=== PATIENT | female | born 1940 | race Caucasian/White ===

== ENCOUNTER 2018-10-06 11:23 | Outpatient (CLI) | payer MEDICARE ==
--- NOTE | 2018-10-06 19:38 | CONSULTATION NOTE ---
Palliative Care Consultation - Referral Referring Provider: Dr. Kerri Mckeon Time of Visit: [id number] Referral setting: [facility] [place] Referral Reason: Met Colon Cancer with liver mets/goals of care - Information Sources Records reviewed: Previous records reviewed History/Review of Systems obtained from: Patient, Family ( Ed present for visit) Exam limitations: No limitations - History of Present Illness Brief History of Present Illness: This is a sue 78-year-old woman with metastatic colon cancer with liver mets, had recurrent disease in March 2017. She had been received chemotherapy,, she was originally on FOLFOX and Avastin, had to discontinue oxaliplatin with cycle 5 because of neuropathy. She was restarted on FOLFIRI on 03/02 2018, because of increasing tumor marker indicating progression. She had received her original treatment over in [place], she has transitioned to the [facility] [place] clinic. She did have an incidental pulmonary embolus finding on a restaging CT of the chest, she is currently on Lovenox. She does feel significant fatigue, some increase in her peripheral neuropathy, and is feeling quite tearful and somewhat overwhelmed during the time she gets her chemotherapy. She does report though she feels better on her week off. She does have a port, and she has her continuous infusion of 5-FU you going at a time of our visit. Her original diagnosis was actually in 08/2012, when she presented with a prolapsed rectum, enlarged uterus 11 x 10 cm mass, and at that point in time had BETSY with SBO, and Resection of her liver sigmoid/upper rectum with found tumor of invasive adenocarcinoma. She was diagnosed with stage I colon cancer, with negative nodes at that point in time. Unfortunately she had a complicated postop course, with Admission for small bowel obstruction, received at that point time exploratory lap, and lysis of adhesion, and gastrostomy tube for decompression. She is meeting with palliative care, define goals of care, wanting to balance benefits and burdens of treatment versus no treatment, and discuss the continuum of care. Patient presents with moderate symptom burden of pain, fatigue, and depression. Medical/Surgical History - Past Medical History Cardiovascular: reports: Pulmonary embolism Respiratory: reports: None Neuro: reports: Peripheral neuropathy Endocrine/Autoimmune: reports: None GI: reports: Colon polyps, Chronic diarrhea, Other (colon cancer; hx of adhesions/obstructions) FURNACE COMBUSTION TESTER: reports: Fibroids : reports: None HEENT: reports: None Psych: reports: Anxiety Musculoskeletal: reports: Osteoarthritis Derm: reports: None MRSA Hx?: No - Past Surgical History General: reports: Bowel surgery, Other (portacath) Ortho: reports: Other (fused ankle) /FURNACE COMBUSTION TESTER: reports: Hysterectomy, Oophrectomy HEENT: reports: Other (thyroid surgery) - Substance History Use: Uses substance without health or social issues: Alcohol Social History - Living Situation Living arrangement: At home Living Situation: With spouse/s.o. Support System: Patient has been for 35 years, and her Ed. 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 They have 1 son [id number] She has many friends and has been active in the [employer] for many years, she continues to stay connected. Family History - Family History Family History: Mother: (father of lung cancer age 60; mother palsey 78; sister 68 of cancer), Father: , Sister: Medications/Allergies - Medications Home Medications: Ambulatory Orders Medication Instructions Recorded Confirmed Multivitamin [Multiple Vitamins] 1 each PO DAILY 11/17/12 10/07/18 Cholecalciferol (Vitamin D3) 1,000 unit PO DAILY 02/07/13 10/07/18 [Vitamin D3] Lactobacillus Rhamnosus GG 1 each PO TID 02/07/13 10/07/18 [Probiotic] Enoxaparin [Lovenox] 80 mg SUBQ DAILY 10/07/18 10/07/18 Ondansetron [Ondansetron Odt] 8 mg PO Q8HR PRN 10/07/18 10/07/18 Pantoprazole [Protonix] 40 mg PO DAILY 10/07/18 10/07/18 Polyethylene Glycol 3350 [Miralax] 17 gm PO DAILY PRN 10/07/18 10/07/18 oxyCODONE [Roxicodone] 5 mg PO Q3HR PRN 10/07/18 10/07/18 - Allergies Allergies/Adverse Reactions: Allergies Allergy/AdvReac Type Severity Reaction Status Date / Time No Known Drug Allergies Allergy Verified 10/04/18 11:49 Review of Systems - Constitutional Constitutional: reports: Fatigue, Night sweats, Weight loss (105; baseline previously was 120) - Eyes Eyes: reports: Vision loss, Corrective lenses - Ears, Nose & Throat Ears, Nose & Throat: reports: Mouth lesions, Dry mouth - Cardiovascular Cardiovascular: reports: Lightheadedness (during chemo), Decr. exercise toleranc e (still baseline able to bike/take walks) - Respiratory Respiratory: reports: SOB with exertion. denies: Orthopnea, SOB at rest - Gastrointestinal Gastrointestinal: reports: Constipation (alternates with diarrhea), Diarrhea, Nausea, Poor appetite, Early satiety, Other (taste changes) - Integumentary Integumentary: reports: Dryness - Neurological Neurological: reports: Numbness (peripheral neuropathy; ;mostly in hands) - Psychiatric Psychiatric: reports: Anxiety - Hematologic/Lymphatic Hematologic/Lymphatic: reports: Blood clots (on lovenox for PE found on CT). denies: Recurrent infections - All Other Systems All Other Systems: reports: Reviewed and negative Physical Exam - Vital Signs Pulse Rate: 66 Respiratory Rate: 18 Blood Pressure: 131/66 - Physical Exam General Appearance: positive: No acute distress Eyes Bilateral: positive: Normal inspection, No scleral icterus ENT: positive: Pharyngeal erythema Neck: positive: No JVD, Trachea midline Cardiovascular: positive: Regular rate & rhythm Respiratory: positive: No respiratory distress, Diminished in bases. negative: Wheezes, Rales, Rhonchi Abdomen: positive: Soft Skin: positive: Dryness Extremities: positive: No pedal edema Neurologic/Psychiatric: positive: Oriented x3, Other (tearfulness) Palliative Care - POLST Patient has POLST: No POLST Status: DNR Pain: Pain unchanged, Location (With diffuse abdominal pain, and right upper quadrant tenderness. She does and has been using oxycodone 5 mg intermittent through the day up to 4 to 5 tablets. She does feel this is adequate and this has control it to her satisfaction. Is fairly persistent, unable to identify exacerbating or relieving factors, other than the pain meds do address the discomfort.), Severity (4-5/10) Tiredness/Fatigue: Moderate (4-6) Drowsiness/Sedation: Mild (1-3) Nausea: Mild (1-3) Depression: Mild (1-3) Anxiety: Mild (1-3) Dyspnea: Moderate (4-6), Comment (with activity not at rest) Anorexia: Moderate (4-6) Sleep: Variable sleep pattern Constipation: Yes, Opoid induced, Intermittent constipation Feelings of wellbeing/Perceived Quality of Life: Good, Acceptable, Worsening Performance Status: Patient remains quite active, gardening, walking, still biking. Will attend her own ADLs. She is very concerned about the future and functional decline. She is fiercely independent. She has had to pace and modify her activities, and take more frequent rests. She does experience fluctuating with her energy with her chemotherapy schedule. - Palliative Care Discussion: Patient does understand she has terminal illness. She is continuing to choose chemotherapy, with the understanding that it could extend her life for 2 to 3 years. She is mostly concerned about quality of life, continue to weigh decisions based on benefits and burdens. She does feel overwhelmed at times, particularly during chemo weeks, with the addition of "chemicals". She and her are concerned regarding planning for her decline in the future, both understand there is limited treatment at the point she progresses on her current regimen. Patient admits to being fiercely independent, and the thought of decline, and needing support for end-of-life care, is difficult. 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 She is also interested in [facility] for end-of-life care as well. Her overall goal though would be to have a at home surrounded by her friends and family. She does have her medical D POA, requested copy for her records. We also discussed the role of the POLST, she thinks she may have one filled out, reviewed is not helpful to have on "file somewhere" that it needs to be a traveling document for herself. Given copy and agreed to follow-up at next visit. Results - Lab Results Lab results reviewed: Yes Lab and Imaging Results: Slightly anemic at 11.9; hematocrit 35.8; total protein 6.0; albumin 3.2; CEA 1331 Impression and Recommendations - Palliative Care Impression: This is a sue 78-year-old woman with metastatic sigmoid colon cancer with liver mets. She is currently receiving FOLFIRI, and is receiving Lovenox secondary to PE found on CT staging scan. This was as of June/2017. She also has known bilateral pulmonary metastasis, and mediastinal lymph nodes, and suspicious findings for bone mets. She presents with moderate symptom burden, fatigue, anorexia, weight loss, and diffuse abdominal pain. Palliative care to provide support regarding anticipatory guidance, symptom management, and transition of care planning when appropriate. Recommendations/Counseling Done: 1. Pain of neoplastic origin. Patient currently taking oxycodone 5 mg 4-5 times a day. Counseling provided regarding option of long-acting medication, OxyContin for time-released, or fentanyl patch. At this point in time she is satisfied with her current regimen, but did discuss given her concerns for future progression of disease/and/or suffering reassured there were multiple options and approaches to keep her pain controlled. 2. Depression. Patient is quite tearful, with anticipatory grief and loss. Reports she has tried something for anxiety, with side effects, does not recall what. Will readdress in future visits. Patient is with good social support, feels she is sharing with friends, has been very supportive, and seeks out ways to normalize and distract herself. She reports she is not a group person, but did give her [employer] information for cancer retreats. 3. Anorexia. This is multifactorial in origin, including taste changes, side effects of chemotherapy, and disease. Patient is using CBD at bedtime both for sleep and appetite stimulant. She feels she is maintaining her weight currently, and feels has adequate strategies at this point in time. Can look for support in the future from dietitian if would be helpful. 4. Advanced care planning. Patient has been with multiple questions regarding planning into the future, counseling provided regarding the continuum of care, palliative care versus hospice care, hospice benefit and support at end of life. Patient also interested in DWD option to explore, patient's understanding currently is her prognosis is greater than 6 months, will follow up with oncologist regarding timing. Counseling provided regarding advanced care planning, role of POLST, and need to obtain documents for medical record. Visit set for 2 weeks and follow-up. Time Spent: 60 minutes was given 50% of this done in counseling regarding advanced care planning, goals of care, pain and symptom management role of palliative care as well as setting of rapport
== END 2018-10-06 11:24 | disposition home or self-care (01) ==
LOC: PC 11:23
PROVIDERS: ATTEND Nurse Practitioner Adult Health
DX: Z51.5 Encounter for palliative care (principal); G89.3 Neoplasm related pain (acute) (chronic); R10.84 Generalized abdominal pain; F32.9 Major depressive disorder, single episode, unspecified; R63.0 Anorexia; C18.9 Malignant neoplasm of colon, unspecified; C78.7 Secondary malignant neoplasm of liver and intrahepatic bile duct; C78.02 Secondary malignant neoplasm of left lung; C78.01 Secondary malignant neoplasm of right lung; C77.9 Secondary and unspecified malignant neoplasm of lymph node, unspecified; Z86.711 Personal history of pulmonary embolism; Z79.01 Long term (current) use of anticoagulants; Z79.899 Other long term (current) drug therapy; Z66 Do not resuscitate
CPT/HCPCS: 99205

== ENCOUNTER 2018-10-20 12:30 | Outpatient (CLI) | payer MEDICARE ==
--- NOTE | 2018-10-20 16:52 | CONSULTATION NOTE ---
Palliative Care Follow Up - Referral Referring Provider: Dr. Kerri Mckeon Time of Visit: [id number] Referral setting: [facility] [place] Referral Reason: Met Colon Cancer with mets liver/pain of neoplastic origin - Information Sources Records reviewed: Previous records reviewed History/Review of Systems obtained from: Patient, Family ( Ed at visit) Exam limitations: No limitations - History of Present Illness Update Brief HPI Update: This is a sue 78-year-old woman with metastatic colon cancer to liver mets, who had recurrent disease in March 2017. She has been on continuous chemotherapy, and currently on FOLFOX since 08/2018. She had her treatment held this week, secondary to low platelet count of 71,000, her tumor marker has been increasing as well to 1448. She is having increased abdominal pain, that she is attributing to most likely progressive disease. She is also having increased fatigue, and presents today to talk about goals of care, and pain and symptom management. Her pain severity is about a 6 out of 10, is consistently persistent. Is located mostly right upper quadrant. She has been using oxycodone 5 mg throughout the day, has been awakening at night to take an extra dose. Patient does appear most likely undermedicated, given her pain tolerance and progressive tumor burden. Has new exacerbation of right sciatica pain, located in the hip radiating down her leg. 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 Social History - Living Situation Living arrangement: At home Living Situation: With spouse/s.o. Support System: Lives with her and, and [place] He originally was going to join us, but given we were going to further explore advanced directives decided this was not the time. She has a very large supportive community of friends, and finds being limited with her fatigue and energy quite frustrating, keeping her from the things she loves. Medications/Allergies - Medications Home Medications: Ambulatory Orders Medication Instructions Recorded Confirmed Multivitamin [Multiple Vitamins] 1 each PO DAILY 11/17/12 10/20/18 Cholecalciferol (Vitamin D3) 1,000 unit PO DAILY 02/07/13 10/20/18 [Vitamin D3] Lactobacillus Rhamnosus GG 1 each PO TID 02/07/13 10/20/18 [Probiotic] Enoxaparin [Lovenox] 80 mg SUBQ DAILY 10/07/18 10/20/18 Ondansetron [Ondansetron Odt] 8 mg PO Q8HR PRN 10/07/18 10/20/18 Pantoprazole [Protonix] 40 mg PO DAILY 10/07/18 10/20/18 Polyethylene Glycol 3350 [Miralax] 17 gm PO DAILY PRN 10/07/18 10/20/18 oxyCODONE [Roxicodone] 5 mg PO Q3HR PRN 10/07/18 10/20/18 fentaNYL [Fentanyl 12mcg patch] 12 mcg TOP .Q72 HOURS 10/20/18 10/20/18 - Allergies Allergies/Adverse Reactions: Allergies Allergy/AdvReac Type Severity Reaction Status Date / Time No Known Drug Allergies Allergy Verified 10/18/18 08:54 Review of Systems - Constitutional Constitutional: reports: Fatigue, Poor appetite, Weight stable. denies: Fever - Cardiovascular Cardiovascular: reports: Decr. exercise tolerance - Respiratory Respiratory: reports: SOB with exertion. denies: SOB at rest - Gastrointestinal Gastrointestinal: reports: Abdominal pain, Constipation, Diarrhea (alternating), Rectal bleeding (with hard stool; none recently), Bloating, Poor appetite, Early satiety, Other (taste changes) - Musculoskeletal Musculoskeletal: reports: Stiffness, Muscle weakness - Integumentary Integumentary: reports: Dryness - Psychiatric Psychiatric: reports: Anxiety. denies: Depression - Hematologic/Lymphatic Hematologic/Lymphatic: reports: Anemia, Blood clots. denies: Recurrent inf ections - All Other Systems All Other Systems: reports: Reviewed and negative Physical Exam - Vital Signs Pulse Rate: 76 Respiratory Rate: 18 O2 Saturation: 98 (ra @ rest) Blood Pressure: 122/74 - Physical Exam General Appearance: positive: No acute distress, Anxious Eyes Bilateral: positive: Normal inspection, No scleral icterus ENT: negative: Pharyngeal erythema, Oral lesions Neck: positive: No JVD, Trachea midline Cardiovascular: positive: Regular rate & rhythm Respiratory: positive: No respiratory distress Abdomen: positive: Soft, Tenderness Skin: positive: Pallor, Dryness Extremities: positive: No pedal edema Neurologic/Psychiatric: positive: Oriented x3, Weakness, Other (tearful; denies depression) Palliative Care - POLST Patient has POLST: Yes POLST Status: DNR, Selective Treatment (completed POLST at visit) Pain: Pain worsening, Location (see HPI) Tiredness/Fatigue: Moderate (4-6) Drowsiness/Sedation: Moderate (4-6) Nausea: Mild (1-3) Depression: Mild (1-3) Anxiety: Mild (1-3) Dyspnea: Mild (1-3) Anorexia: Moderate (4-6) Sleep: Variable sleep pattern Constipation: Yes, Intermittent constipation Feelings of wellbeing/Perceived Quality of Life: Fair, Worsening Performance Status: Patient's activity currently limited by fatigue, some with right sciatica pain. Patient is able to attend to her own ADLs, but finding things about her condit ion limiting. I would put her at a PPS of 70% - Palliative Care Discussion: Discussion regarding goals of care, patient at end of life would like to be at home with hospice support. Still has multiple questions regarding some of the nuances and support services around that, questions answered. We did spend quite a bit of time on the POLST, the role of the pulse to communicate to the healthcare system particularly EMS or ED. Did elis DNA R/allow natural . She has a place where selective treatment with the goal of treating for several conditions, but does not want anything aggressive. Discussion regarding antibiotics, will determine the use with comfort is goal if issues arise, and currently no medically assisted nutrition. 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 Counseling provided regarding normalizing grief and loss process, patient does not perceive herself as depressed though is quite tearful and reflective of her decline in the future, and implications related to this. Results - Lab Results Lab results reviewed: Yes Lab and Imaging Results: Platelets 71,000, WBC 5.2, hemoglobin 11.9, neutrophil count 3.0. Tumor marker CEA went up to 1448. Impression and Recommendations - Palliative Care Impression: Is a sue 78-year-old woman with metastatic sigmoid colon cancer with liver, lung, and mediastinal lymph nodes and bone mets. She does present with escalating pain, fatigue, anorexia and weight loss. Palliative care providing support regarding anticipatory guidance, symptom management, and transition of care planning when appropriate. Recommendations/Counseling Done: 1. Pain off neoplastic origin. Patient does have escalating abdominal / RUQ pain, suspect she is under medicated. Discussed benefits and burdens of moving forward on long-acting pain medication, Dr. Mckeon is in agreement with this. We will go ahead and start her on fentanyl 12 mcg patch, counseling provided regarding safety, initiation, and changing of patch. She is to continue use oxycodone for breakthrough pain management, and will initiate on obtaining fentanyl patch. Patient would most likely also benefit from addition of either Lyrica or gabapentin for right sciatica pain, given patient on very few medications, will initiate after see how she tolerates fentanyl or if this improves sciatica pain. If this does not respond, will add next week. 2. Depression. Patient is quite tearful with anticipatory grief and loss. Does not perceive herself as depressed, has been reports she does not lack of motivation, but is feeling overwhelmed at times. She has had medication in the past for anxiety, this was not helpful but poor side effects for her. Is using CBD/THC for insomnia and appetite stimulant. 3. Advanced care planning. Family counseling regarding POLST and goals of care, patient currently DNA R with selective treatment. Her goals are to focus on quality of life, spending time with friends and family and the end of life she would like to have a at home. Counseling provided regarding the hospice benefit, palliative care versus hospice care, and transition recommended earlier than later if patient to discontinue treatment. Continues to weigh the benefits of burdens in the context of her quality of life, palliative care to continue provide support particular around pain and symptom management Time Spent: 60 minutes with greater than 50% of this done in counseling regarding POLST/goals of care, pain and symptom management initiating fentanyl patch instructed on safety, application, and use. Counseling provided regarding the long and short acting principles of pain management, and anticipatory guidance provided.
== END 2018-10-20 12:31 | disposition home or self-care (01) ==
LOC: PC 12:30
PROVIDERS: ATTEND Nurse Practitioner Adult Health
DX: Z51.5 Encounter for palliative care (principal); G89.3 Neoplasm related pain (acute) (chronic); C18.9 Malignant neoplasm of colon, unspecified; C78.7 Secondary malignant neoplasm of liver and intrahepatic bile duct; C78.00 Secondary malignant neoplasm of unspecified lung; C77.1 Secondary and unspecified malignant neoplasm of intrathoracic lymph nodes; C79.51 Secondary malignant neoplasm of bone; R97.0 Elevated carcinoembryonic antigen [CEA]; M54.31 Sciatica, right side; F32.9 Major depressive disorder, single episode, unspecified; F41.9 Anxiety disorder, unspecified; G47.00 Insomnia, unspecified; Z79.899 Other long term (current) drug therapy; Z66 Do not resuscitate; Z79.891 Long term (current) use of opiate analgesic
CPT/HCPCS: 99215

== ENCOUNTER 2018-11-08 12:19 | Outpatient (CLI) | payer MEDICARE ==
--- NOTE | 2018-11-08 17:44 | CONSULTATION NOTE ---
Palliative Care Follow Up - Referral Referring Provider: Dr. Kerri Mckeon Time of Visit: [id number] Referral setting: [facility] [place] Referral Reason: Sciatica right hip/Pain of neoplastic origin/Met Colon Cancer - Information Sources Records reviewed: Previous records reviewed History/Review of Systems obtained from: Patient Exam limitations: No limitations - History of Present Illness Update Brief HPI Update: This is a sue 78-year-old woman with metastatic colon cancer with liver mets, who had recurrent disease in March 2017. She has been on continuous chemotherapy, currently on FOLFOX since 08/2018. She has been feeling pretty good this last week, though her most persistent and aggravating symptom is her right sciatica. We have been titrating up gabapentin, without significant improvement. She has done some activities to exacerbate it, and is aware of those limitations. Her abdominal pain right upper quadrant, has improved on the fentanyl 12 mcg patch, she is only needed oxycodone at bedtime. She reports the most effective medicine at this point in time is been the Advil for her sciatica pain but very short lived. She has gained some weight, her appetite is been better, she does have decreased activity tolerance. She is somewhat anxious with her escalating CEA, and is appropriately pondering though "what next." Social History - Living Situation Living arrangement: At home Living Situation: With spouse/s.o. Support System: Home with her sue , who oversees her medications. She is here with a friend, she does feel like she has a supportive community. [place] in [place] contact also. Medications/Allergies - Medications Home Medications: Ambulatory Orders Medication Instructions Recorded Confirmed Multivitamin [Multiple Vitamins] 1 each PO DAILY 11/17/12 11/08/18 Cholecalciferol (Vitamin D3) 1,000 unit PO DAILY 02/07/13 11/08/18 [Vitamin D3] Lactobacillus Rhamnosus GG 1 each PO TID 02/07/13 11/08/18 [Probiotic] Enoxaparin [Lovenox] 80 mg SUBQ DAILY 10/07/18 11/08/18 Ondansetron [Ondansetron Odt] 8 mg PO Q8HR PRN 10/07/18 11/08/18 Pantoprazole [Protonix] 40 mg PO DAILY 10/07/18 11/08/18 Polyethylene Glycol 3350 [Miralax] 17 gm PO DAILY PRN 10/07/18 11/08/18 oxyCODONE [Roxicodone] 5 mg PO Q3HR PRN 10/07/18 11/08/18 fentaNYL [Fentanyl 12mcg patch] 12 mcg TOP .Q72 HOURS 10/20/18 11/08/18 Gabapentin 200 mg PO .0800 AM ; .1400 11/08/18 11/08/18 Gabapentin 300 mg PO ACHS 11/08/18 11/08/18 Meloxicam 7.5 mg PO DAILY 11/08/18 11/08/18 - Allergies Allergies/Adverse Reactions: Allergies Allergy/AdvReac Type Severity Reaction Status Date / Time No Known Drug Allergies Allergy Verified 11/08/18 10:22 Review of Systems - Constitutional Constitutional: reports: Fatigue, Weakness, Weight gain (110). denies: Fever, Chills - Eyes Eyes: reports: Vision loss, Corrective lenses - Cardiovascular Cardiovascular: reports: Decr. exercise tolerance - Respiratory Respiratory: reports: SOB with exertion. denies: SOB at rest - Gastrointestinal Gastrointestinal: reports: Abdominal pain, Constipation, Diarrhea (alternating), Nausea, Bloating, Early satiety - Musculoskeletal Musculoskeletal: reports: Back pain (sciatica right leg), Stiffness, Muscle weakness - Integumentary Integumentary: reports: Dryness - Neurological Neurological: reports: General weakness - Psychiatric Psychiatric: reports: Depression, Anxiety - Hematologic/Lymphatic Hematologic/Lymphatic: reports: Anemia. denies: Recurrent infections - All Other Systems All Other Systems: reports: Reviewed and negative Physical Exam - Vital Signs Temperature: 36.6 C Pulse Rate: 76 Respiratory Rate: 16 O2 Saturation: 96 (ra @ rest) Blood Pressure: 139/51 - Physical Exam General Appearance: positive: No acute distress, Anxious Eyes Bilateral: positive: Normal inspection ENT: positive: No signs of dehydration Neck: positive: No JVD, Trachea midline Cardiovascular: positive: Regular rate & rhythm Respiratory: positive: No respiratory distress Abdomen: positive: Soft, Nml bowel sounds, Tenderness. negative: Mass Skin: positive: Pallor, Dryness. negative: Jaundice Extremities: positive: No pedal edema Neurologic/Psychiatric: positive: Oriented x3, Mood/affect nml, Weakness Palliative Care - POLST Patient has POLST: Yes POLST Status: DNR, Selective Treatment Pain: Pain worsening (right sciatica; abdominal pain improved) Tiredness/Fatigue: Moderate (4-6) Drowsiness/Sedation: Mild (1-3) Nausea: Mild (1-3) Depression: Mild (1-3) Anxiety: Mild (1-3) Dyspnea: Mild (1-3) Anorexia: Moderate (4-6) Sleep: Sleeps well Constipation: No, Managed, Intermittent constipation Feelings of wellbeing/Perceived Quality of Life: Good, Acceptable, Worsening Performance Status: Patient able to manage her ADLs, she does have decreased activity tolerance, and mostly limited by her right sciatica pain. She is still doing some gardening, but is finding herself sitting much more. She attributes this to exacerbation of her sciatica pain, she has had pain in her past. It is on her right side. She does have a gait that is guarded. - Palliative Care Discussion: Patient is discouraged by her escalating CEA, is wondering about having scans in the check and to see where her disease processes. She continues to weigh the benefits and burdens of moving forward, particularly if the treatment is not containing disease. She will be scheduled to see Dr. CAROLIN FRAGOSO in 2 weeks, is hoping to have some answers at that point in time. She continues to find things to distract herself, does express feelings of grief and loss regarding her normal now that is so far off from her baseline normal. 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 She does present with ongoing right sciatica pain, fatigue, abdominal pain improved. Palliative care providing support regarding anticipatory guidance, pain and symptom management, and transition to hospice when appropriate Recommendations/Counseling Done: 1. Right sciatica pain. Patient has acute pain, this is continued to escalate, has not improved with titration of gabapentin. We will go ahead and titrate up to gabapentin 200 mg a.m., 200 mg 1400, 300 mg p.m. She gets the most relief actually from the Advil, will replace with meloxicam 7.5 mg daily. She is interested in pursuing physical therapy, she does have a therapist she is interested in, patient does have [email or web address] insurance, most likely will need to come from her primary. She will contact me with therapist, and can facilitate to office. 2. Pain of neoplastic origin. Patient's right upper quadrant pain is being managed quite well on the fentanyl 12 mcg patch, she is using just one 5 mg in the evening of oxycodone. Does describe though fairly persistent pain, we did discuss in the context of increasing her fentanyl, she could trial oxycodone 5 mg 4 times a day, this would be roughly equal to the fentanyl 12 mcg, if she finds this acceptable with no side effects we can double her fentanyl. She was in agreement with that plan. 3. Depression/anxiety. Patient does appear more settled today, she reports she is feeling better this last week. She does get feeling overwhelmed at times, and expresses feelings of grief and loss. She does feel she has adequate support and does not want to retry a medication. 4. Advanced care planning. Patient does have POLST with DNA R and selective treatment, her D POA is her Dileep Mitchell [phone]. Patient is awaiting further information on disease progression, and will revisit goals of care at that point in time. She continues to weigh the benefits and burdens in the context of her quality of life, palliative care to continue to provide support. Time Spent: 45 minutes of been 50% of this done in counseling around pain and symptom management and anticipatory guidance.Scription was provided for fentanyl 12 mcg patch, and meloxicam 7.5 mg tabs
== END 2018-11-08 12:20 | disposition home or self-care (01) ==
LOC: PC 12:19
PROVIDERS: ATTEND Nurse Practitioner Adult Health
DX: Z51.5 Encounter for palliative care (principal); M54.31 Sciatica, right side; G89.3 Neoplasm related pain (acute) (chronic); C18.7 Malignant neoplasm of sigmoid colon; C78.7 Secondary malignant neoplasm of liver and intrahepatic bile duct; C78.00 Secondary malignant neoplasm of unspecified lung; C79.51 Secondary malignant neoplasm of bone; C77.1 Secondary and unspecified malignant neoplasm of intrathoracic lymph nodes; F41.9 Anxiety disorder, unspecified; F32.9 Major depressive disorder, single episode, unspecified; Z79.1 Long term (current) use of non-steroidal anti-inflammatories (NSAID); Z79.899 Other long term (current) drug therapy; Z66 Do not resuscitate
CPT/HCPCS: 99215

== ENCOUNTER 2018-11-15 09:08 | Outpatient (CLI) | payer MEDICARE ==
[2018-11-15] MEDS ORDERED: IOVERSOL 320 50 ML VIAL ONE ×2 (09:39→09:42)
[2018-11-15] MEDS ORDERED: IOVERSOL 320 100 ML VIAL IVP ONE ×2 (09:39→13:36)
[2018-11-15] MEDS ORDERED: IOVERSOL 320 50 ML VIAL PO ONE (13:36)
--- NOTE | 2018-11-17 10:22 | CT Report ---
Reason: METS COLON CA Procedure Date: 11/15/2018 Accession Number: [id number] / [id number] Procedure: CT - Abdomen/Pelvis W CPT Code: FULL RESULT: EXAM: CT CHEST, ABDOMEN AND PELVIS EXAM DATE: 11/15/2018 11:55 AM. CLINICAL HISTORY: Mets, colon cancer. COMPARISONS: CHEST W/ 11/15/2018 11:49 AM. ABDOMEN/PELVIS W/ 07/08/2013 2:37 PM. TECHNIQUE: Routine helical CT imaging was performed through the chest, abdomen, and pelvis. IV contrast: 100 mL Optiray 320. Enteric contrast: Yes. Reconstructions: Coronal and sagittal. In accordance with CT protocol optimization, one or more of the following dose reduction techniques were utilized for this exam: automated exposure control, adjustment of mA and/or KV based on patient size, or use of iterative reconstructive technique. FINDINGS: Lungs/Pleura: There are numerous bilateral pulmonary nodules suspicious for metastases, for example on image 43 series 2 in the right lower lobe, 1.3 x 1.6 cm nodule and in the left upper lobe on image 30, 1.5 x 1.4 cm nodule. No pleural effusion or pneumothorax. No lobar consolidation or pulmonary edema. Mediastinum: Prominent right hilar lymph node measures up to 0.8 cm in short axis image 26 series 2. Subcarinal lymph nodes appear morphologically abnormal on image 25 series 2, 1.1 cm in short axis. Liver: Much of the left lobe of the liver is replaced by hypodense confluence of mass, measuring 11.7 x 5.8 cm as seen on image 24 series 4. In the right lobe of the liver, segment 7 is a 7.7 x 7.4 cm conglomerate mass as seen on image 15 series 4. Gallbladder/Bile Ducts: Unremarkable. Spleen: Two hypodensities in the spleen measuring up to 1.1 cm as seen on image 13 are nonspecific. Pancreas: Normal. Adrenal Glands: Normal. Kidneys: Normal. No masses or hydronephrosis. Peritoneal Cavity/Bowel: Retroperitoneal and mesenteric lymph nodes do not meet size criteria. There is no bowel obstruction. There is no free fluid or free air. Pelvic Organs: Prominent lymph nodes do not meet size criteria. The bladder and visualized pelvic organs are within normal limits. Vasculature: No aneurysms or other significant abnormality. Bones: A markedly hyperdense lesion in the right acetabulum is redemonstrated and appears similar to 2014. Otherwise, no aggressive osseous lesions are detected. Other: Prior hemithyroidectomy is noted. IMPRESSION: Metastatic disease to the lungs and liver as described. Predominant burden is to the liver, consider palliative locoregional therapy if this is clinically indicated and in line with patient wishes. RADIA
== END 2018-11-15 09:09 | disposition home or self-care (01) ==
LOC: DI 09:08
PROVIDERS: ATTEND Nurse Practitioner Adult Health
DX: C18.7 Malignant neoplasm of sigmoid colon (principal); C78.00 Secondary malignant neoplasm of unspecified lung; C78.7 Secondary malignant neoplasm of liver and intrahepatic bile duct
CPT/HCPCS: 71260; 74177; Q9967

== ENCOUNTER 2018-11-22 09:37 | Outpatient (CLI) | payer MEDICARE ==
--- NOTE | 2018-11-22 17:21 | CONSULTATION NOTE ---
Palliative Care Follow Up - Referral Referring Provider: Dr. Kerri Mckeon Time of Visit: [id number] [place] [facility] [place] Reason: Pain of neoplastic origin/Met Colon Cancer to liver/lungs/ goals of care - Information Sources Records reviewed: Previous records reviewed History/Review of Systems obtained from: Patient, Family ( Ed present for visit) Exam limitations: No limitations - History of Present Illness Update Brief HPI Update: This is a sue 78-year-old woman with metastatic colon cancer with liver and lung mets. She presented with recurrent disease in March 2017, has been receiving continuous chemotherapy since this time. She was most recently on FOLFOX since 08/2018. Today after meeting with her oncologist, and recent scans Showing she has minimal but asymptomatic progression in her lungs and adenopathy, but progressive disease in her liver she is transitioning to continuous 5-FU. She is also receiving a referral over to Interventional radiology for consideration of targeted liver therapy of chemo embolization or Y 90. Patient was quite surprised that she had other options regarding her disease, continues to weigh these in the context of quality of life issues. She has felt quite well this last week, her sciatica right hip pain has continued to resolve, she has been able to work in the garden up to 3 hours. She has had no further sharp shooting pains. Her abdominal pain currently is controlled on her fentanyl 12 mcg patch, needing only oxycodone at bedtime. In the context of this is unclear if the titration of the medications has made a difference, or her sciatica is resolving, either case given patient's goals, will try and titrate down off additional medications. Patient originally quite anxious regarding the implications of recent scans, she knows that her disease has been progressing as evidenced by her CEA. She is quite hopeful to have a good summer, is planning to continue to hope for the best to this, again recognizing the seriousness of her illness. She is concerned in the future with her decline, regarding the impact on her son and t heir family. She will continue to meet with palliative care for support, she is going to transition her care back to [facility] particularly in the context of initiating radiation and finding that a better match with her needs. Social History - Living Situation Living arrangement: At home Living Situation: With spouse/s.o. Support System: Patient lives with her and, who is quite supportive of patient. He does manage her visits and medications. Patient also has a son, who is and currently has his 's family visiting from [place] for 6 weeks. She is very much wanting to enjoy her friends and community, she feels well supported. Medications/Allergies - Medications Home Medications: Ambulatory Orders Medication Instructions Recorded Confirmed Multivitamin [Multiple Vitamins] 1 each PO DAILY 11/17/12 11/23/18 Cholecalciferol (Vitamin D3) 1,000 unit PO DAILY 02/07/13 11/23/18 [Vitamin D3] Lactobacillus Rhamnosus GG 1 each PO TID 02/07/13 11/23/18 [Probiotic] Enoxaparin [Lovenox] 80 mg SUBQ DAILY 10/07/18 11/23/18 Ondansetron [Ondansetron Odt] 8 mg PO Q8HR PRN 10/07/18 11/23/18 Pantoprazole [Protonix] 40 mg PO DAILY 10/07/18 11/23/18 Polyethylene Glycol 3350 [Miralax] 17 gm PO DAILY PRN 10/07/18 11/23/18 oxyCODONE [Roxicodone] 5 mg PO Q3HR PRN 10/07/18 11/23/18 fentaNYL [Fentanyl 12mcg patch] 12 mcg TOP .Q72 HOURS 10/20/18 11/23/18 Gabapentin 200 mg PO .0800 AM ; .1400 11/08/18 11/23/18 Gabapentin 300 mg PO ACHS 11/08/18 11/23/18 - Allergies Allergies/Adverse Reactions: Allergies Allergy/AdvReac Type Severity Reaction Status Date / Time No Known Drug Allergies Allergy Verified 11/22/18 09:40 Review of Systems - Constitutional Constitutional: reports: Fatigue, Weight stable. denies: Fever, Chills - Eyes Eyes: reports: Corrective lenses - Ears, Nose & Throat Ears, Nose & Throat: denies: Mouth lesions - Cardiovascular Cardiovascular: reports: Decr. exercise tolerance - Respiratory Respiratory: reports: SOB with exertion. denies: SOB at rest - Gastrointestinal Gastrointestinal: reports: Abdominal pain (controlled on current regimen), Good appetite. denies: Constipation (keeps bowels soft to avoid obstructive symptoms), Nausea - Integumentary Integumentary: reports: Dryness - Neurological Neurological: reports: General weakness - Psychiatric Psychiatric: reports: Anxiety. denies: Depression - Hematologic/Lymphatic Hematologic/Lymphatic: reports: Blood clots (on lovenox). denies: Anemia, Recurrent infections - All Other Systems All Other Systems: reports: Reviewed and negative Physical Exam - Vital Signs Temperature: 36.3 C Pulse Rate: 81 Respiratory Rate: 18 O2 Saturation: 97 Blood Pressure: 133/71 - Physical Exam General Appearance: positive: No acute distress, Alert Eyes Bilateral: positive: Normal inspection, No scleral icterus ENT: negative: Oral lesions Neck: positive: Trachea midline Respiratory: positive: No respiratory distress, Breath sounds nml Abdomen: positive: Soft Skin: positive: Dryness. negative: Jaundice Extremities: positive: No pedal edema Neurologic/Psychiatric: positive: Oriented x3, Mood/affect nml Palliative Care - POLST Patient has POLST: Yes POLST Status: DNR, Selective Treatment Pain: Pain improved, Severity (5/10) Tiredness/Fatigue: Moderate (4-6) Drowsiness/Sedation: Mild (1-3) Nausea: Mild (1-3) Depression: Mild (1-3) Anxiety: Mild (1-3) Dyspnea: Mild (1-3) Anorexia: Moderate (4-6) Sleep: Sleeps well Constipation: Yes, Opoid induced, Managed Feelings of wellbeing/Perceived Quality of Life: Fair Performance Status: Patient's activity tolerance is improved, as well as patient's ability to ambulate with decrease in pain. She is able to attend her own ADLs. She does still have limitations regarding her fatigue, but is doing better as this is her off week from chemo. - Palliative Care Discussion: Patient is not surprised by findings on the scan, progressive disease, she is surprised by the fact she is has other treatment options, but expects to weigh those in the context of quality of life issues. We also discussed in the context of this second opinions given the state of immunotherapy, always an option as far as exploring clinical trials. She is not sure this is a good fit given her philosophy and approach to her current illness. She would like to continue with palliative care, and not transition over to [facility], but receive her care locally. We did discuss other options as far as home visits versus clinic. We can also do more supportive phone calls and titrate regimen accordingly. Patient quite pleased with improved pain of her right hip and leg, has been able to participate in gardening which does support her sole. We did discuss her anxiety, she is feeling much better, and feels there is no need for family meeting at this point in time given our previous communication. She is setting short-term goals, including looking forward to a birthday democrat, does not feel like there is anything left done done at this point. Results - Lab Results Lab results reviewed: Yes Impression and Recommendations - Palliative Care Impression: This is a sue 78-year-old woman with metastatic sigmoid colon cancer to liver, lung, the sternal nodes and bone mets. Her recent CT scans, do show progression of disease, and will be transitioning to continuous 5-FU and evalu ation of other treatment options through interventional radiology. He does present today with improvement of her right sciatica pain, continued continued fatigue but improvement, and abdominal pain managed currently. Palliative care to provide support regarding pain and symptom management, anticipatory guidance, and transition to hospice when appropriate. Recommendations/Counseling Done: 1. Right sciatica pain. Patient's pain had improved overall, continues to resolve, unclear if this is resolving etiology are managed with current medication. She is currently on gabapentin 200 mg a.m., 200 mg 1400, 300 mg p.m. She is also on meloxicam 7.5 mg, we did discuss perhaps titrating back and see if can decrease pill burden. We will start with the meloxicam, she is to discontinue this starting this evening, we will check in next week, and start titration of gabapentin if no escalation or recurrence of pain. She will restart meloxicam if does make a difference in her pain control. Pain of neoplastic origin. Patient's right upper quadrant pain is currently being managed on the fentanyl 12 mcg patch, and 5 mg of oxycodone in the evening. At this point in time she does not have increased or persistent pain as previous visit, not needing titration of pain medication currently. 3. Depression/anxiety. This is most likely induced regarding her severe anxiety with the Decadron. She will be getting continuous 5-FU, and will not need steroids at this point in time. She feels currently she is managing, with support of her and friends, will continue to evaluate on ongoing basis. Counseling regarding anticipatory guidance, and plan for support in the future. 4. Advanced care planning. Patient does have POLST with DNA R/selective treatments her D POA is her Dileep Medrano [phone]. She has had disease progression, but currently exploring further options for treatment, will continue to weigh the benefits and burdens in the context of her quality of life, palliative care to continue to provide support regarding this. Time Spent: 45 minutes with greater than 50% of this done in counseling regarding pain and symptom management, psychosocial support and anticipatory guidance.
== END 2018-11-22 09:38 | disposition home or self-care (01) ==
LOC: PC 09:37
PROVIDERS: ATTEND Nurse Practitioner Adult Health
DX: Z51.5 Encounter for palliative care (principal); G89.3 Neoplasm related pain (acute) (chronic); M54.31 Sciatica, right side; F41.8 Other specified anxiety disorders; C18.9 Malignant neoplasm of colon, unspecified; C78.7 Secondary malignant neoplasm of liver and intrahepatic bile duct; C78.00 Secondary malignant neoplasm of unspecified lung; Z79.899 Other long term (current) drug therapy; Z79.891 Long term (current) use of opiate analgesic; Z66 Do not resuscitate
CPT/HCPCS: 99215

== ENCOUNTER 2019-01-26 11:21 | Outpatient (CLI) | payer MEDICARE ==
--- NOTE | 2019-01-26 16:00 | CONSULTATION NOTE ---
Palliative Care Follow Up - Referral Referring Provider: Dr. Kerri Mckeon Time of Visit: 11:35-12:25 Referral setting: [facility] [place] Referral Reason: Pain of neoplastic origin/met colon ca with liver mets - Information Sources Records reviewed: Previous records reviewed History/Review of Systems obtained from: Patient, Family ( Ed present) Exam limitations: No limitations - History of Present Illness Update Brief HPI Update: This is a sue 79-year-old woman with metastatic colon cancer to the liver and lung. She just recently had her 79th birthday, and still feeling quite positive coming after a wonderful amazing time for her. She is currently awaiting her appointment on 02/03 for her Y 90 radiation treatment. She received chemotherapy of her 5-FU last week and did experience some mucositis, now with a residual lesion on her left lower lip. In reviewing her labs and records it does show her last CT scan 12/08 showed progression in her liver and her CEA is continuing to climb. Patient functionally though is doing quite well, is able to garden, ambulating short distances, still able to attend her ADLs, though given her baseline activity has slowed down some. But she does report though is increased lower back pain across the lower lumbar higher pelvic girdle. As well as localized into her hips. She has a baseline abdominal pain this fluctuates, and worsens for a few days after treatment. Her sciatica pain has dissipated, and her current regimen is fentanyl 25 mcg patch, gabapentin 300 mg 3 times daily, and oxycodone as needed for breakthrough pain which she has not been using. She is still on the meloxicam at dinnertime of 7.5 mg, no gastric distress. In review of where she describes her pain, she does have some suspected lesions in the spine and pelvis for metastatic disease. But remained unchanged from previous scan. Complaints of increased fatigue, and decreased in sciatica pain of her right leg, we had decreased her gabapentin from 400 3 times daily, to 300 3 times daily with agreement to leave it where it was pending her birthday and increased activity. They are here today did for palliative care support regarding anticipatory guidance, pain and symptom management and follow-up on current quality of life issues Social History - Living Situation Living arrangement: At home Living Situation: With spouse/s.o. Support System: It is well supported by her , who manages her medications and appointments. Patient has many friends and families that provide her ongoing support, she does not feel she needs other support from our team members at this time. 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 and continue on from here Medications/Allergies - Medications Home Medications: Ambulatory Orders Medication Instructions Recorded Confirmed Multivitamin [Multiple Vitamins] 1 each PO DAILY 11/17/12 01/26/19 Cholecalciferol (Vitamin D3) 1,000 unit PO DAILY 02/07/13 01/26/19 [Vitamin D3] Lactobacillus Rhamnosus GG 1 each PO TID 02/07/13 01/26/19 [Probiotic] Enoxaparin [Lovenox] 80 mg SUBQ DAILY 10/07/18 01/26/19 Ondansetron [Ondansetron Odt] 8 mg PO Q8HR PRN 10/07/18 01/26/19 Pantoprazole [Protonix] 40 mg PO DAILY 10/07/18 01/26/19 Polyethylene Glycol 3350 [Miralax] 17 gm PO DAILY PRN 10/07/18 01/26/19 oxyCODONE [Roxicodone] 5 mg PO Q3HR PRN 10/07/18 01/26/19 Gabapentin 300 mg PO BID 11/08/18 01/26/19 Magic Mouth Wash 5 - 10 ml PO QID PRN 01/26/19 Meloxicam 7.5 mg PO DAILY 01/26/19 01/26/19 fentaNYL [Fentanyl 25mcg patch] 25 mcg TOP .72 HOURS 01/26/19 01/26/19 - Allergies Allergies/Adverse Reactions: Allergies Allergy/AdvReac Type Severity Reaction Status Date / Time No Known Drug Allergies Allergy Verified 11/22/18 09:40 Review of Systems - Constitutional Constitutional: reports: Fatigue, Poor appetite, Weight stable. denies: Fever, Chills - Eyes Eyes: reports: Vision loss, Corrective lenses - Ears, Nose & Throat Ears, Nose & Throat: reports: Mouth lesions (improving), Other (new lip lesion;) - Cardiovascular Cardiovascular: reports: Decr. exercise tolerance - Respiratory Respiratory: reports: SOB with exertion. denies: SOB at rest - Gastrointestinal Gastrointestinal: reports: Abdominal pain (controlled currently), Bloating, Early satiety. denies: Constipation (intermittent), Diarrhea (intermittent with chemo), Rectal bleeding, Nausea - Musculoskeletal Musculoskeletal: reports: Back pain (new area), Stiffness, Limited range of motion, Muscle weakness - Integumentary Integumentary: reports: Dryness, Hair changes (thinning) - Neurological Neurological: reports: General weakness, Memory problems (forgetfulness) - Psychiatric Psychiatric: reports: Depression (mild), Anxiety - Hematologic/Lymphatic Hematologic/Lymphatic: reports: Blood clots (hx on lovenox) - All Other Systems All Other Systems: reports: Reviewed and negative Physical Exam - Vital Signs Pulse Rate: 76 Respiratory Rate: 18 Blood Pressure: 122/67 - Physical Exam General Appearance: positive: No acute distress, Alert Eyes Bilateral: positive: Normal inspection ENT: positive: Other (small 0.5 cm lesion midline of lower lip; white eschar; no cellulitis/no evidence of vesicles/denies hx of recent herpes/cold sores. Had flare of mucositis last few days but resolving; no oral lession currently identified. 10 days post tx with 5FU. 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 negative: Wheezes, Rales, Rhonchi Abdomen: positive: Nml bowel sounds, Tenderness, Distended, Taut Skin: positive: Pallor, Dryness Extremities: positive: No pedal edema Neurologic/Psychiatric: positive: Oriented x3, Mood/affect nml, Weakness Palliative Care - POLST Patient has POLST: Yes POLST Status: DNR, Selective Treatment Pain: Location (new pain in lower back and pelvic/upper buttocks area; dull ache; currently attributing to working in garden though is in area of suspected met dx), Severity (5/10) Tiredness/Fatigue: Moderate (4-6) Drowsiness/Sedation: Mild (1-3) Nausea: Mild (1-3) Depression: Mild (1-3) Anxiety: Mild (1-3) Dyspnea: Moderate (4-6) Anorexia: Moderate (4-6) Sleep: Sleeps well Constipation: Yes, Opoid induced, Managed, Intermittent constipation Feelings of wellbeing/Perceived Quality of Life: Fair, Acceptable Performance Status: Is unable to manage her own ADLs, she has had to curtail her activity, take naps and pace herself. She finds morning her best time, and goes to bed early evening. - Palliative Care Discussion: Patient does understand the seriousness of her illness, and that her disease is progressing. Though she herself is feeling quite stable, with only some mild increase in fatigue and pain. She feels her quality of life is still such that her continuing treatment, and is hopeful that Y 90 will bring her both some decr ease in tumor burden and increase in quantity of life. She is feeling quite positive and well supported, continues to set short-term goals, and very much enjoyed her recent birthday democrat which was 1 of her goals. Results - Lab Results Lab results reviewed: Yes Impression and Recommendations - Palliative Care Impression: This is a sue 79-year-old woman with progressive metastatic colon cancer with enlarging liver mets. She is to receive Y 90 radiation treatment, will be on hold with her chemotherapy till the end of the month. She is hopeful for a good response, she remains with moderate tumor burden, continuing to have fluctuating pain now presenting with new lower back and higher buttock /pelvic girdle pain. Palliative care to continue provide support around quality of life issues, pain management and anticipatory guidance. Recommendations/Counseling Done: 1. Pain of neoplastic origin. This is multifactorial. Patient is currently managed for her abdominal pain, deep aching fistula pain with the fentanyl 25 mcg patch with good control. Her sciatica pain has resolved, is continuing on gabapentin 300 mg TID, did decreased from 400 mg 3 times daily and attempts to improve her fatigue and decrease sedation. She did notice some improvement, we are going to wait till the day to consider further titration. Given the neuropathic component of her pain has improved, will go ahead and decrease to 300 mg twice daily for the week, and will continue with titration if no change in pain. She is on the meloxicam 7.5 mg, were considering discontinuing in this, though now presents with lower back and possible bony pain. We will continue at this point in time. She is having no gastric side effects and her kidney function is fine. We did discuss if patient becomes more localized to increase, the role of radiation and bony mets. If needed. Prescription provided for fentanyl 25 mcg patch #10. Call to [facility] to confirm they do have some in stock and able to transfer her prescription to [place] as they a re leaving to go out of town. 2. Depression/anxiety. Patient feeling quite positive, she is getting support from her , family and friends. She is setting short-term goals, she does get tearful and overwhelmed at times, but does not feel this is significant at this point in time. 3. Anorexia. Patient's weight has remained stable, though we did discuss the importance of her to maintain weight or possibly gain. She has found the CBD/THC helpful for appetite, but needs to take it 2 hours before she eats. Counseling provided regarding strategizing and prioritizing taking this on a da bell basis, she will set her phone alarm. 4. Metastatic colon cancer with liver mets and lung mets. She is to receive Y 90, she is hopeful this will further prolong and increase her quality of life and quantity life as well. Reviewed current treatment plan and hopes for the future. 5. Mucositis. Patient does have a significant lesion on her lower lip, oncology is ordered Magic mouthwash, reviewed that this is for comfort not necessarily going to heal it. Patient I believe is probably re-traumatizing it, instructed on rinsing and spitting to, if not coating lesion to use the A&E to keep it moist and not scabbing. Counseling provided regarding signs and symptoms of cellulitis, at this point in time does not appear herpetic in nature. 6. Advanced care planning. Patient does have POLST with DNR/selective treatments her D POA is her [employer] [phone]. She continues to weigh benefits and burdens of treatments as they come up, feeling currently her quality of life is still acceptable. Palliative care continue provide support and transition to hospice when appropriate. Time Spent: 50 minutes with greater than 50% of this done in counseling regarding pain and symptom management, goals of care, and anticipatory guidance.
== END 2019-01-26 11:22 | disposition home or self-care (01) ==
LOC: PC 11:21
PROVIDERS: ATTEND Nurse Practitioner Adult Health
DX: Z51.5 Encounter for palliative care (principal); C18.7 Malignant neoplasm of sigmoid colon; C78.7 Secondary malignant neoplasm of liver and intrahepatic bile duct; C78.00 Secondary malignant neoplasm of unspecified lung; G89.3 Neoplasm related pain (acute) (chronic); K59.03 Drug induced constipation; T40.605A Adverse effect of unspecified narcotics, initial encounter; F32.9 Major depressive disorder, single episode, unspecified; F41.9 Anxiety disorder, unspecified; R63.0 Anorexia; K12.30 Oral mucositis (ulcerative), unspecified; H54.7 Unspecified visual loss; Z79.891 Long term (current) use of opiate analgesic; Z79.01 Long term (current) use of anticoagulants; Z66 Do not resuscitate; Z86.718 Personal history of other venous thrombosis and embolism
CPT/HCPCS: 99215

== ENCOUNTER 2019-03-08 15:30 | Outpatient (CLI) | payer MEDICARE ==
--- NOTE | 2019-03-08 16:46 | CONSULTATION NOTE ---
Palliative Care Follow Up - Referral Referring Provider: Dr. Kerri Mckeon Time of Visit: [id number] Referral setting: Home Referral Reason: Pain of neoplastic origin/Met Colon Cancer - Information Sources Records reviewed: Previous records reviewed History/Review of Systems obtained from: Patient, Family (son Kendrick and Ed present) Exam limitations: No limitations - History of Present Illness Update Brief HPI Update: This is a 79-year-old woman with metastatic colon cancer with liver mets. She also has known mets to the lung, and on CT ill defined lucent osseous lesions through the spine and pelis suspicious for daniel mets. She has completed her first round of Y 90 treatments for her right liver mets on 02/21, she did have a difficult time with this, with increased pain, constipation alternating with diarrhea, weakness, and feeling quite poorly. She also presented with concern for bowel obstruction, most likely attributed to inflammation from her radiation. She is going to be scheduled for another treatment in 2 to 3 weeks, at this point in time her chemotherapy is on hold, though they are looking at considering a new regimen per her understanding. Her pain was exacerbated during this time, currently today she is feeling much better. She still has vague abdominal right pain, but has not needed any breakthrough oxycodone for several days. She is on fentanyl 25 mcg patch, currently sitting at gabapentin 300 mg a.m. and 200 mg p.m., and continues on the meloxicam. She has no signs or symptoms of sciatica pain which had exacerbated earlier this summer. She has had some fluctuating sedation, and would like to continue to decrease her pill burden. She feels her pain is currently controlled, she is doing better with fluid intake has done well with the Pedialyte, and now is trying to regulate her bowels. She does admit to not using the MiraLAX or unclear what she had been doing during that time., She had also been using increased oxycodone, she currently using MiraLAX 17 g daily, ANIYAH, and intermittent bisacodyl 5 mg. She had seen the oncologist earlier this week, was having quite a bit of bloating, she has enlisted to [employer] with some relief, and is adding a probiotic to her regimen. During this time period she also had a round of oral candidiasis after her procedure, feels like she is eating and drinking again, and taste changes though present are improved. Patient appears in bright spirits, easily engaged, happy to have her son Kendrick join us today. She has wanted to share her thoughts and plans for the future, though we did discuss in the context of goals of care, this can often evolve in particular defining what is quality of life. Social History - Living Situation Living arrangement: At home Living Situation: With spouse/s.o. Support System: She lives in a beautiful home with [place] that she has created, and finds a peaceful place as well as healing to be. She is supported by her , who oversees her medications, and today and meeting her only child, her son Kendrick. She is well supported by her community, and often finds it overwhelming managing all the communication. Medications/Allergies - Medications Home Medications: Ambulatory Orders Medication Instructions Recorded Confirmed Multivitamin [Multiple Vitamins] 1 each PO DAILY 11/17/12 03/09/19 Cholecalciferol (Vitamin D3) 1,000 unit PO DAILY 02/07/13 03/09/19 [Vitamin D3] Lactobacillus Rhamnosus GG 1 each PO DAILY 02/07/13 03/09/19 [Probiotic] Enoxaparin [Lovenox] 80 mg SUBQ DAILY 10/07/18 03/09/19 Ondansetron [Ondansetron Odt] 8 mg PO Q8HR PRN 10/07/18 03/09/19 Pantoprazole [Protonix] 40 mg PO DAILY 10/07/18 03/09/19 Polyethylene Glycol 3350 [Miralax] 17 gm PO DAILY PRN 10/07/18 03/09/19 oxyCODONE [Roxicodone] 5 mg PO Q3HR PRN 10/07/18 03/09/19 Gabapentin 300 mg PO QDBREAKFAST 11/08/18 03/09/19 Magic Mouth Wash 5 - 10 ml PO QID PRN 01/26/19 03/09/19 fentaNYL [Fentanyl 25mcg patch] 25 mcg TOP .72 HOURS 01/26/19 03/09/19 Bisacodyl [Dulcolax] 5 mg PO DAILY PRN 03/09/19 03/09/19 Cyanocobalamin (Vitamin B-12) 1,000 mcg PO DAILY 03/09/19 03/09/19 [Vitamin B-12] Ferrous Fumarate 2 tab PO DAILY 03/09/19 03/09/19 Gabapentin 200 mg PO QDDINNER 03/09/19 03/09/19 - Allergies Allergies/Adverse Reactions: Allergies Allergy/AdvReac Type Severity Reaction Status Date / Time No Known Drug Allergies Allergy Verified 11/22/18 09:40 Review of Systems - Constitutional Constitutional: reports: Fatigue, Fever (last night brief but up 100.5/ no chills or abd pain), Weight stable (110) - Eyes Eyes: reports: Vision loss, Corrective lenses - Ears, Nose & Throat Ears, Nose & Throat: reports: Dry mouth. denies: Mouth lesions - Cardiovascular Cardiovascular: reports: Decr. exercise tolerance. denies: Edema - Respiratory Respiratory: reports: SOB with exertion. denies: SOB at rest - Gastrointestinal Gastrointestinal: reports: Abdominal pain, Diarrhea (improved), Bloating, Early satiety. denies: Rectal bleeding, Nausea - Musculoskeletal Musculoskeletal: reports: Stiffness, Muscle weakness. denies: Back pain - Integumentary Integumentary: reports: Dryness - Neurological Neurological: reports: General weakness - Psychiatric Psychiatric: reports: Depression, Anxiety - Hematologic/Lymphatic Hematologic/Lymphatic: reports: Anemia, Blood clots (on lovenox for PE) - All Other Systems All Other Systems: reports: Reviewed and negative Physical Exam - Vital Signs Temperature: 97.8 C Pulse Rate: 81 Respiratory Rate: 18 O2 Saturation: 93 (ra @ rest) Blood Pressure: 112/64 - Physical Exam General Appearance: positive: No acute distress, Alert Eyes Bilateral: positive: Normal inspection ENT: positive: No signs of dehydration. negative: Pharyngeal erythema, Oral lesions Neck: positive: No JVD, Trachea midline Cardiovascular: positive: Regular rate & rhythm Respiratory: positive: No respiratory distress, Diminished in bases. negative: Wheezes, Rales, Rhonchi Abdomen: positive: Soft, Nml bowel sounds, Tenderness, Hepatomegaly, Distended (mild) Skin: positive: Pallor, Dryness Extremities: positive: No pedal edema Neurologic/Psychiatric: positive: Oriented x3, Mood/affect nml, Weakness Palliative Care - POLST Patient has POLST: Yes POLST Status: DNR, Selective Treatment Pain: Pain improved, Location (see HPI) Tiredness/Fatigue: Moderate (4-6) Drowsiness/Sedation: Moderate (4-6) Nausea: None Depression: Mild (1-3) Anxiety: Mild (1-3) Dyspnea: Mild (1-3) Anorexia: Mild (1-3) Sleep: Sleep improved, Variable sleep pattern Constipation: Yes, Opoid induced, Intermittent constipation Feelings of wellbeing/Perceived Quality of Life: Fair, Acceptable, Improved Performance Status: It is regaining some of her strength back, she does have ongoing activity i ntolerance, and needs frequent rest periods she is able to manage her own ADLs, but has been is doing meal prep and support. I would put her at a PPS of 60% - Palliative Care Discussion: Patient's beautiful home, it was a chance to have a family conference with her son Kendrick. He very much wants to stay involved and connected, is making a commitment to be more part of the journey. Did spend time reflecting on current status, symptom burden, and ventured into the future particularly around choices around of life. Patient was overwhelmed and concerned that she had felt so poorly after the procedure, is feeling better, and encouraged that her CEA is down. She is glad to have a bit of a break before the next 1, and feels somewhat more prepared. Continue to conversation regarding end-of-life options including DWD, hospice support, and threshold for decision-making regarding weighing benefits and burdens of moving forward with treatments. Results - Lab Results Lab results reviewed: Yes Lab and Imaging Results: WBCs elevated on 03/06-14.2 postprocedure, RBCs 3.9; hemoglobin 11.3; hematocrit 34.8 absolute neutrophils high at 11.8 sodium 134 potassium 3.9 kidney function good, AST 56 improved alk phos 179 improved, bilirubin 0.8 and CEA at 2735 Impression and Recommendations - Palliative Care Impression: This a sue 70 woman with progressive metastatic colon cancer with enlarging liver mets, she has mets to the lung and bone. She received her Y 90 radiation treatment, with significant symptom burden after treatment. She is feeling a little bit better, still having some intermittent temps, abdominal pain is improved, and pleased with her drop in CEA. Patient's pain has improved, continues with fatigue but eating and drinking better. Palliative care to continue provide support around quality of life issues, pain and symptom management and anticipatory guidance. Recommendations/Counseling Done: 1. Pain of neoplastic origin. This is multifactorial. Patient is currently much improved, she is doing fine with just her fentanyl 25 mcg patch, has not needed any extra oxycodone. Her current gabapentin is 300 mg in a.m. and 200 mg in p.m. She has not had any further neuropathic component of sciatica or sharp shooting pains. She is on meloxicam 7.5 mg, she is not have any pelvic pain lower back pain concern regarding possible bony pain will go ahead and discontinue as she is looking at decreasing pill burden. We will continue to monitor and titrate down gabapentin in future as indicated. 2. Depression/anxiety. Patient did have a fairly low point after her Y 90 treatment, she reports she feels she is recovered, she is not tearful during conversation. She is quite pleased to have her son is part of the family conference and discussion. She is pacing herself, she does feel like she has adequate social support, and is doing some work on relaxation and meditation. 3. Anorexia. Patient continues to remain weight neutral, but she has had some difficulty with dehydration, and concern for bowel obstruction. She does feel her appetite is improved, this is including treating her oral candidiasis, she does not demonstrate any abnormalities orally today. 4. Metastatic colon cancer with liver and lung mets. She is to receive her second round of Y 90 for the left lobe, this is pending in 2 weeks. She is going to continue with a chemo holiday during this time. Encouraged to take advantage of her increased energy, lower symptom burden, to do something fun and supportive. 5. Constipation. This is multifactorial in origin, patient had lost tract and also most likely had significant inflammation and decrease in peristalsis with her Y 90 treatment. She is currently taking MiraLAX, she does have bisacodyl as needed, she wants to decrease pill burden instructed could stop ANIYAH as most likely not beneficial in context of duplication of Miralax. Counseling provided regarding microbiome, use of probiotics, and food products to improve colon health. 5. Advanced care planning. Patient does have a POLST with DNR/selective treatments her D POA is her [employer] [phone]. Family conference regarding patient's current approach, feelings and concerns, discussion and anticipatory guidance given regarding future options and decisions. Questions answered and will continue to provide support via planning for end of life. Time Spent: 60 minutes with greater than 50% of this done in counseling regarding pain and symptom management goals of care, and anticipatory guidance. Plan to meet again week after she has her next treatment, they will contact me with appointment for scheduling
== END 2019-03-08 15:31 | disposition home or self-care (01) ==
LOC: PC 15:30
PROVIDERS: ATTEND Nurse Practitioner Adult Health
DX: Z51.5 Encounter for palliative care (principal); G89.3 Neoplasm related pain (acute) (chronic); F32.9 Major depressive disorder, single episode, unspecified; F41.9 Anxiety disorder, unspecified; R63.0 Anorexia; K59.00 Constipation, unspecified; C18.9 Malignant neoplasm of colon, unspecified; C78.00 Secondary malignant neoplasm of unspecified lung; C78.7 Secondary malignant neoplasm of liver and intrahepatic bile duct; C79.51 Secondary malignant neoplasm of bone; Z79.891 Long term (current) use of opiate analgesic; Z79.899 Other long term (current) drug therapy; Z66 Do not resuscitate
CPT/HCPCS: 99350

== ENCOUNTER 2019-03-30 17:42 | Outpatient (CLI) | payer MEDICARE ==
--- NOTE | 2019-03-30 19:22 | CONSULTATION NOTE ---
Palliative Care Follow Up - Referral Referring Provider: Dr. Kerri Mckeon Time of Visit: [id number] Referral setting: Home Referral Reason: Pain of neoplastic origin/Met Colon Ca - Information Sources Records reviewed: Previous records reviewed History/Review of Systems obtained from: Patient, Family (Ed her ) Exam limitations: No limitations - History of Present Illness Update Brief HPI Update: This is a 79-year-old woman with metastatic colon cancer with liver mets, she also has known mets to lung, bone, and has had a difficult few weeks. She is completed her first round of Y 90 treatments for right liver mets on 1, had a significant difficult time with this with increased pain, constipation alt ernating with diarrhea, weakness, and continues to feel poorly but some improvement from baseline. Patient has had some improvement in her pain in her right side, has been some concern that she has had some episodes of change in cognition, particularly over the weekend was quite confused, had some sedation, and poor activity tolerance. Patient has been having episodes on and off since December of similar nature but not quite so prolonged and not so persistent. Has been reports he did just have some labs, and ammonia level was within normal limits, her liver enzymes have not been dramatically increased, she has been eating and drinking, and in response we have titrated down her fentanyl. Patient with fentanyl 12 mcg patch, she has oxycodone 5 mg for breakthrough pain, she did need 2 doses yesterday with decrease in patch, she does have some vague upper right quadrant pain but not severe today at visit. She is also on gabapentin, we had initiated this in response to severe sciatica, and have been titrating down, we held the titration as she did have a pain spike last week. We will continue with the gabapentin decreased, currently she is on 200 a.m. and 300 p.m. Patient appears quite fatigued, her color is sallow not jaundiced, she does have some temporal and upper and lower extremity muscle wasting, as well as some dependent edema. She has mild distention in her abdomen, with some tenderness but no acute signs or symptoms of pain. She does have significant complaints of bloating, and intermittent diarrhea which is been persistent alternating with constipation. She appears emotionally fatigued as well, and discouraged she does not feel better, and meeting with her has been added, son Kendrick, and [id number] Danya. Social History - Living Situation Living arrangement: At home Living Situation: With spouse/s.o. Support System: Patient's and oversees her medication, advocates and tracks medical appointments. She does have a sue community and support of her friends, she has 1 son and her [id number], she is somewhat anxious how he is going to do with her decline and her end-of-life choices. Medications/Allergies - Medications Home Medications: Ambulatory Orders Medication Instructions Recorded Confirmed Multivitamin [Multiple Vitamins] 1 each PO DAILY 11/17/12 03/30/19 Cholecalciferol (Vitamin D3) 1,000 unit PO DAILY 02/07/13 03/30/19 [Vitamin D3] Lactobacillus Rhamnosus GG 1 each PO DAILY 02/07/13 03/30/19 [Probiotic] Enoxaparin [Lovenox] 80 mg SUBQ DAILY 10/07/18 03/30/19 Ondansetron [Ondansetron Odt] 8 mg PO Q8HR PRN 10/07/18 03/30/19 Pantoprazole [Protonix] 40 mg PO DAILY 10/07/18 03/30/19 Polyethylene Glycol 3350 [Miralax] 17 gm PO DAILY PRN 10/07/18 03/30/19 oxyCODONE [Roxicodone] 5 mg PO Q3HR PRN 10/07/18 03/30/19 Gabapentin 100 mg PO QDBREAKFAST 11/08/18 03/30/19 Magic Mouth Wash 5 - 10 ml PO QID PRN 01/26/19 03/30/19 fentaNYL [Fentanyl 25mcg patch] 12 mcg TOP .72 HOURS 01/26/19 03/30/19 Bisacodyl [Dulcolax] 5 mg PO DAILY PRN 03/09/19 03/30/19 Cyanocobalamin (Vitamin B-12) 1,000 mcg PO DAILY 03/09/19 03/30/19 [Vitamin B-12] Ferrous Fumarate 2 tab PO DAILY 03/09/19 03/30/19 Gabapentin 200 mg PO QDDINNER 03/09/19 03/30/19 - Allergies Allergies/Adverse Reactions: Allergies Allergy/AdvReac Type Severity Reaction Status Date / Time No Known Drug Allergies Allergy Verified 11/22/18 09:40 Review of Systems - Constitutional Constitutional: reports: Fatigue, Weakness, Night sweats, Weight loss (about 2 pounds recently). denies: Fever - Eyes Eyes: reports: Vision loss, Corrective lenses - Ears, Nose & Throat Ears, Nose & Throat: reports: Dry mouth. denies: Mouth lesions - Cardiovascular Cardiovascular: reports: Decr. exercise tolerance - Respiratory Respiratory: reports: SOB with exertion. denies: SOB at rest - Gastrointestinal Gastrointestinal: reports: Abdominal pain, Abdominal distention, Diarrhea, Nausea, Reflux/heartburn, Bloating, Poor appetite, Early satiety - Musculoskeletal Musculoskeletal: reports: Stiffness, Muscle weakness - Integumentary Integumentary: reports: Dryness - Neurological Neurological: reports: General weakness, Numbness, Memory problems - Psychiatric Psychiatric: reports: Depression, Anxiety - Hematologic/Lymphatic Hematologic/Lymphatic: reports: Anemia - All Other Systems All Other Systems: reports: Reviewed and negative Physical Exam - Vital Signs Temperature: 97.2 C Pulse Rate: 80 Respiratory Rate: 18 O2 Saturation: 94 (ra @ rest) Blood Pressure: 102/62 - Physical Exam General Appearance: positive: Mild distress Eyes Bilateral: positive: Normal inspection, No scleral icterus ENT: positive: No signs of dehydration Neck: positive: Nml inspection, Trachea midline Cardiovascular: positive: Regular rate & rhythm Respiratory: positive: No respiratory distress, Diminished in bases. negative: Wheezes, Rales, Rhonchi Abdomen: positive: Abnml bowel sounds (decreased), Tenderness, Distended Skin: positive: Pallor, Dryness. negative: Jaundice (sallow) Extremities: positive: Pedal edema (trace to 1+ pedal edema up to knees) Neurologic/Psychiatric: positive: Oriented x3, Weakness, Flat affect Palliative Care - POLST Patient has POLST: Yes POLST Status: DNR, Selective Treatment Pain: Pain improved, Location Tiredness/Fatigue: Severe (7-10) Drowsiness/Sedation: Severe (7-10) Nausea: Mild (1-3) Depression: Moderate (4-6) Anxiety: Mild (1-3) Dyspnea: Mild (1-3) Anorexia: Mild (1-3), Weight loss Sleep: Sleeps well Constipation: Intermittent constipation Feelings of wellbeing/Perceived Quality of Life: Poor, Worsening Performance Status: Patient does present with functional decline, she has less activity tolerance less able to manage a day particularly in the evenings. She does take a nap, she does feel refreshed in the morning. She though in her fatigue, has demonstrated some increased changes cognitively, this most often happens in the evening.She is able to manage her ADLs, her does do the household tasks and meal prep. - Palliative Care Discussion: Discussion centered mostly on patient's decline, concerned may be attributed some to her opioid use, but she has been on fentanyl since September. This was a primary concern of her son, and expressing distress over her decline. Patient too, is quite discouraged with her ongoing decline, trying to find underlying explanation to be better able understand and address her concerns around pain, fatigue, her abdominal symptoms and presents with existential distress. She is scheduled to have a CT scan tomorrow, is hopeful will provide some information particular around her "spells". Patient has been treated with continuous chemotherapy since March 2017 when she had diagnosis of recurrent disease. She actually has done fairly well over these last couple years, with good functional status, able to meet her goals, but has had increasing symptom burden over the last several months.Patient is been exploring DWD, and her PCP has agreed to participate as well as oncology. She is completing her tasks around this. She has not shared this yet with her family beyond her . Counseling provided in attempts to provide a context regarding the continuum of progressive decline in the setting of terminal cancer, acknowledging the difficulty of the situation and complexity they are in currently.. Impression and Recommendations - Palliative Care Impression: This is a sue 79-year-old woman with progressive metastatic colon cancer with enlarging liver mets, lung and bone. She did receive Y 90 radiation treatment, with decrease in her CEA, but has had continued challenges with symptom management of fluctuating pain, fluctuating cognitive status, functional and cognitive decline, and complex abdominal symptoms. Palliative care to continue provide support around quality of life issues, pain and symptom management and anticipatory guidance Recommendations/Counseling Done: 1. Pain of neoplastic origin. This is multifactorial, patient has had her fentanyl 12 mcg patch decreased, does not appear to be significant increase in her pain, though did use 2 oxycodone yesterday, she reports she feels a little brighter today, but still fatigued. Counseling provided regarding equianalgesia, fentanyl 12 mcg equals about 20 mg of oxycodone over 24-hour. Reviewed she is on fairly small amounts of opioid, but certainly could have some changes in metabolism that could be adding to her fatigue and cognitive issues, though suspect she has been on it long-term and not the underlying cause of this. Reviewed if wants to trial off fentanyl, to use oxycodone 3 to 4 tablets through the day, to address any symptoms of withdrawal. Patient I suspect though will not tolerate current right upper quadrant pain without some opioid on board. Postulated patient may have decreased pain as she did receive the Y 90 and her right upper quadrant pain is attributed to her liver mets. Counseling also provided to son who is new to the pain regimen, for steady state and more consistent pain management, as oxycodone only last 3 to 4 hours she is on a lo ng-acting pain med. We will continue to titrate down gabapentin, as her sciatica nerve has resolved. She has had fluctuating pain right upper quadrant, and intermittent back pain. And to contact me regarding how her pain titration goes, she is only been on the 12th fentanyl for 1 round, he will need new prescription either for 05/17's. 2. Abdominal bloating. Patient continues to experiment with MiraLAX and Gas-X as well as diet. She has had persistent diarrhea, which has been distressing to her. Patient is concerned regarding obstructive symptoms, so between her hemicolectomy and her treatment has kept her bowels pretty loose. Unfortunately this is persisted since the radiation, though she reports she had a more normal bowel movement this morning. She does present with some distention, most likely multifactorial with ascites, tumor burden, and an abnormal peristalsis. 3. Metastatic colon cancer. Patient to get CT scan, she is weighing benefits and burdens of moving forward with second Y 90 treatment. Had found the side effects quite overwhelming, but CT scan should inform results if worth moving forward. Patient does present with both physical and emotional fatigue, w eighing benefits and burdens of quality of life as she moves forward. 4. Advanced care planning. Patient is very much a plantar, she is moving forward on her DWD paperwork and option. If patient is not going to receive Y 90 or further chemotherapeutic agents, would recommend transitioning to hospice for support. Counseling provided regarding anticipatory guidance, and addressed questions as able regarding expected decline Time Spent: 65 minutes with greater than 50% of this done in counseling regarding pain and symptom management, family counseling regarding goals of care and anticipatory guidance
== END 2019-03-30 17:43 | disposition home or self-care (01) ==
LOC: PC 17:42
PROVIDERS: ATTEND Nurse Practitioner Adult Health
DX: Z51.5 Encounter for palliative care (principal); G89.3 Neoplasm related pain (acute) (chronic); R53.81 Other malaise; R41.89 Other symptoms and signs involving cognitive functions and awareness; R53.1 Weakness; R14.0 Abdominal distension (gaseous); R19.7 Diarrhea, unspecified; K59.00 Constipation, unspecified; C18.9 Malignant neoplasm of colon, unspecified; C78.7 Secondary malignant neoplasm of liver and intrahepatic bile duct; C78.00 Secondary malignant neoplasm of unspecified lung; C79.51 Secondary malignant neoplasm of bone; Z79.899 Other long term (current) drug therapy; Z79.891 Long term (current) use of opiate analgesic; Z90.49 Acquired absence of other specified parts of digestive tract; Z66 Do not resuscitate
CPT/HCPCS: 99350